=== PATIENT | female | born 1995 | race Caucasian/White ===

== ENCOUNTER → 2019-06-03 08:45 | Outpatient (CLI) | payer BC, SELFPAY ==
[2019-06-03 08:12] VITALS: BMI 35.6
[2019-06-03 10:50] LABS: HIV - WCH Non-Reactive (Nonreactive)
[2019-06-03 18:16] LABS: Chlamydia Trachomatis by PCR Negative (Negative); Neisserai gonorrhoeae by PCR Negative (Negative); Probe Check PASS; Sample Adequacy Control PASS; Specimen Processing Control PASS
[2019-06-05 03:06] LABS: HCV Quant. RNA PCR HCV Not Detected IU/mL (.)
[2019-06-05 11:36] LABS: HSV 1 IgG < 0.91 index (0.00-0.90); HSV 2 IgG < 0.91 index (0.00-0.90)
[2019-06-06 01:05] LABS: Rapid Plasmin Reagin (RPR) NONREACTIVE (NONREACTIVE)
[2019-06-06 16:02] LABS: HPV Reflexed? NOT INDICATED
== END ==
PROVIDERS: Referring Provider Nurse Practitioner Women's Health; Visit Provider Nurse Practitioner Women's Health
DX: Z12.4 Encounter for screening for malignant neoplasm of cervix (principal); Z11.3 Encounter for screening for infections with a predominantly sexual mode of transmission
CPT/HCPCS: 36415; 86592; 86695; 86696; 86703; 87491; 87522; 87591; 88175; G0145

== ENCOUNTER 2019-09-17 10:41 | Emergency (ER) | payer BC, SELFPAY ==
[2019-06-10 13:22] VITALS: BMI 34.7
[2019-09-17 10:41] VITALS: BP 139/87; PULSE 81; RESP 19; TEMP 36.8; O2SAT 97; BMI 34.0
[2019-09-17 10:54] VITALS: BP 139/82; PULSE 81; RESP 20; TEMP 36.8
--- NOTE | 2019-09-17 10:56 | ED.VISSUMM ---
- ER Visit Summary Date of Service: 09/17/19 Chief Complaint: [Cough and shortness of breath] History of Present Illness: The patient is a 24 F [presents to the emergency department with complaint of a cough since August 24. Patient was seen at urgent care on 27 August and was given an inhaler and told to self quarantine for 14 days for symptoms suspicious of COVID-19. Patient denies any exposures to COVID-19. She has had no fever. Cough mostly nonproductive. Patient states that she continues to cough and cough so hard that she actually vomits once or twice a day. Patient complains of exertional dyspnea. She otherwise has no medical history.] Physical Examination: [HEENT-PERRLA, EOMI. Cranial nerves II through XII grossly intact. TMs clear. Mucous membranes moist. No adenopathy. Cardiovascular-regular rate and rhythm without murmur or ectopy Lungs-clear to auscultation, chest wall stable without crepitus or subcu emphysema Abdomen-normoactive bowel sounds, soft, nontender, no rebound or rigidity, no peritoneal signs. Extremities-intact ?4, normal range of motion, normal pulses, atraumatic] Test Results: [CBC with differential obtained was normal. Chemistries unremarkable. D-dimer was normal 0.3. COVID test was ordered and is pending. Chest x-ray obtained showed patchy infiltrates right upper lobe and right lower lobe] Emergency Department Course and Treatment: [Patient was medicated with Levaquin 750 mg p.o.] Treatment Plan: [Patient will be discharged home with a prescription for Levaquin. Patient advised to continue to self quarantine] Disposition: [Discharged home in stable condition] Impression: [Pneumonia] This note was generated with [employer] software. It may contain incorrect words, spelling, and punctuation that were not noted in review of the chart prior to signing ED Disposition - Plan for ED Patient: Referrals: Care Physician,No Primary [Primary Care Provider] -
[2019-09-17 10:57] VITALS: O2SAT 97
--- NOTE | 2019-09-17 11:10 | RAD_ITS ---
STUDY: X-RAY CHEST REASON FOR EXAM: Female, 24 years old. Cough with sob TECHNIQUE: Single AP portable view of the chest. COMPARISON: None. FINDINGS: EKG electrodes are seen. Patchy infiltrates are seen in the right upper and right lower lobes. The left lung is clear. There is no demonstrated pleural abnormality. Normal size heart. Normal mediastinum and stefani. Normal visualized pulmonary arteries. Normal visualized aortic arch and descending thoracic aorta. Normal visualized thoracic spine. Normal visualized ribs, clavicles, and shoulders. There is no demonstrated abnormality of the visualized soft tissue structures of the upper abdomen. RAD/Chest 1 View (Portable) IMPRESSION: Patchy infiltrates in the right upper and right lower lobes. Follow-up is suggested. Electronically Signed: Yg Garcia, at 11:20 EDT , Service support ,
[2019-09-17 11:14] LABS: Absolute Lymphocyte Count 1.92 X10^3/uL (0.83-4.51); Absolute Neutrophil Count 4.1 X10^3/uL (2.0-7.7); Basophil# 0.04 X10^3/uL; Basophil% 0.5 % (0-1); Eosinophils% 22.3 % (0-5); Hematocrit 43.6 % (37-47); Hemoglobin 14.7 g/dL (12.0-15.0); Lymphocyte # 1.92 X10^3/ul (4.0); Lymphocyte % 22.5 % (19-41); Mean Corp Hgb Conc 33.7 g/dL (32-36); Mean Corpuscular Hgb 29.1 pg (27.0-32.0); Mean Corpuscular Volume 86.2 fL (81-99); Mean Platelet Vol. 11.2 fl (6.2-12.0); Monocyte# 0.53 X10^3/uL; Monocyte% 6.2 % (0-10); NRBC Flagged by Analyzer 0 % (0-5); Neutrophil # 4.12 X10^3/uL (2.7-7.7); Neutrophil % 48.4 % (47-70); Platelet Count 251 K/mm3 (150-450); RBC Distribution Width SD 37.9 fl (35.1-43.9); Red Blood Count 5.06 M/mm3 (4.2-5.4); White Blood Count 8.5 K/mm3 (4.4-11.0)
[2019-09-17 11:27] LABS: Anion Gap 9 (5-15); BUN 10 mg/dL (7-18); BUN/Creat Ratio 12.7 RATIO (10-20); Calcium,Total 9.6 mg/dL (8.5-10.1); Chloride 110 mmol/L (98-107); Creatinine, Serum 0.79 mg/dL (0.55-1.02); EST Glomerular Filtration Rate 94 mL/min (>60); Est Glom Filt Rate - Afr Amer 114 mL/min (>60); Estimated Creatinine Clearance 113.77 ml/min; Glucose 98 mg/dL (74-106); Potassium 3.6 mmol/L (3.5-5.1); Sodium Level 143 mmol/L (136-145)
--- NOTE | 2019-09-17 12:37 | DCINST.ED_ITS ---
ED Disposition - Plan for ED Patient: Instructions: Pneumonia Prescriptions: Levofloxacin [Levaquin] 750 mg PO DAILY #7 tab Transmission Status: [facility] to [id number] Benzonatate [Tessalon Perle] 200 mg PO TID PRN PRN #20 cap PRN Reason: Cough Transmission Status: Pending to [id number] Referrals: Care Physician,No Primary [Primary Care Provider] - 3-5 Days
--- NOTE | 2019-09-17 12:37 | ED.DEP ---
ED Disposition - Plan for ED Patient: Instructions: Pneumonia Prescriptions: Levofloxacin [Levaquin] 750 mg PO DAILY #7 tab Transmission Status: [facility] to [id number] Benzonatate [Tessalon Perle] 200 mg PO TID PRN PRN #20 cap PRN Reason: Cough Transmission Status: Pending to [id number] Referrals: Care Physician,No Primary [Primary Care Provider] - 3-5 Days
[2019-09-17 13:02] VITALS: BP 128/68; PULSE 80; RESP 22; O2SAT 98
[2019-09-17] MEDS: levoFLOXacin 750 MG Tablet PO (13:05)
== END 2019-09-17 13:16 | disposition home or self-care (01) ==
LOC: ED 12:15
PROVIDERS: Emergency Provider Emergency Medicine
DX: J18.9 Pneumonia, unspecified organism (principal)
CPT/HCPCS: 71045; 80048; 85025; 85379; 87635; 99284; G2023; U0003

== ENCOUNTER 2019-09-18 07:52 | Inpatient (IN) | payer BC, SELFPAY ==
[2019-09-17 10:41] VITALS: BMI 34.0
[2019-09-18] VITALS (12 sets, daily range): BP systolic 114–145; BP diastolic 57–91; PULSE 73–107; RESP 12–26; TEMP 36.4–37.2; O2SAT 91–99; BMI 34.0
--- NOTE | 2019-09-18 08:12 | RAD_ITS ---
STUDY: X-RAY CHEST REASON FOR EXAM: Female, 24 years old. PNEUMONIA X 1 MONTH, CHECK PROGRESSION, CONTINUED SOB AND COUGH TECHNIQUE: Single AP portable view of the chest. COMPARISON: Comparison is made with prior examination dated September 17, 2019. FINDINGS: EKG electrodes are seen. Stable appearance of the infiltrates in the right upper and right lower lobes with a lateral peripheral distribution. There is no demonstrated pleural abnormality. Normal size heart. Normal mediastinum and stefani. Normal visualized pulmonary arteries. Normal visualized aortic arch and descending thoracic aorta. Normal visualized thoracic spine. Normal visualized ribs, clavicles, and shoulders. There is no demonstrated abnormality of the visualized soft tissue structures of the upper abdomen. RAD/Chest 1 View (Portable) IMPRESSION: Stable appearance of the infiltrates in the lateral aspects of the right upper and right lower lobes. Electronically Signed: Yg Garcia, at 9:13 EDT , Service support ,
--- NOTE | 2019-09-18 08:15 | ED.VIS.DYS ---
History of Present Illness Chief Complaint: Shortness of Breath Informant: Patient Onset: Weeks - 3 Activity at onset: Rest Timing: Continuous Quality: - - trouble breathing Current Severity: Moderate Maximum Severity: Severe Worsened by: Coughing, Exertion Relieved by: Albuterol, Rest Associated Symptoms: Cough - mostly PERSONNEL TECHNICIAN, - - occ postussive emesis. Negative for: Fever Chest Pain: None Narrative: Patient seen here yesterday for 3 weeks of cough and shortness of breath, diagnosed with pneumonia throughout the right lung and had a negative COVID test. She was placed on Levaquin and given an albuterol inhaler and advised to follow-up. Mom states she brought her back because she was increased coughing and shortness of breath all night, she had an episode of bronchospasm and increased shortness of breath this morning during which her pulse ox that they measured at home dropped down to 83%, patient states she came back up into the 90s shortly thereafter. She is currently dyspneic and states she has been dyspneic like she is now for the last 3 weeks since the middle of August. She has been using her albuterol inhaler almost every hour overnight according to mother. She says it does help her breathing some when she uses it. She denies any new symptoms. Past Medical History - Allergies and Home Meds Allergies/Adverse Reactions: Allergies Penicillins Allergy (Mild, Verified 09/18/19 07:52) anaphylactic Primary Care Physician: Care Physician,No Primary [NON-STAFF] - Past Medical History: None Lives: With Family Smoking Status: Former smoker Review of Systems General: Reports: Malaise, Sweats - when having episodes of brochospasm. Denies: Chills, Fever Eyes: Denies: Visual changes - bilaterally, Diplopia ENT: Denies: Bilateral ear pain, Rhinorrhea, Sore throat Cardiovascular: Denies: Chest pain, Palpitations Respiratory: Reports: Dyspnea, Cough, Dyspnea on exertion. Denies: Sputum, Orthopnea Gastrointestinal: Reports: Vomiting - only postussive. Denies: Abdominal pain, Nausea, Diarrhea, Melena, Hematochezia Genitourinary: Denies: Dysuria, Hematuria, Frequency Musculoskeletal: Denies: Neck pain, Back pain, Swelling, Extremity Pain Skin: Denies: Rash, Wounds Neurological: Denies: Headache, Weakness, Numbness Physical Exam Vital Signs/Narrative: Vital Signs Temp Pulse Resp BP Pulse Ox 09/18/19 07:53 97.5 F L 99 24 H 114/57 L 91 Inital Vital Signs reviewed: Yes General: Well nourished, Well developed, Acute Distress - mild resp distress. speaking in 10+ word sentences Head: Normocephalic, Atraumatic Eyes: Perrl, EOMI ENT: Moist mucous membranes, No rhinorrhea, - - POP clear Neck: Supple, Nontender, No lymphadenopathy, No JVD Cardiovascular: Regular rate, Regular rhythm, No murmurs Respiratory: Chest nontender, Rales - right. Negative for: Rhonchi, Wheezing Abdomen: Soft, Nontender, Nondistended, Normal bowel sounds Back: Nontender, Normal Inspection Extremities: Nontender, No edema. Negative for: Calf Tenderness Skin: Normal color, No rash, No Trauma Neurological: Alert, Oriented x3, Cranial nerves II-XII grossly intact, Normal Strength, Normal Sensation, Normal Gait Psychological: Normal affect, Normal Mood Diagnostic/Tx/Re-eval Impressions Chest X-Ray 09/18/19 08:12 IMPRESSION: Stable appearance of the infiltrates in the lateral aspects of the right upper and right lower lobes. Electronically Signed: Yg Jose, at 9:13 EDT , Service support , 09/18/19 08:12 Chest 1 View (Portable) [RAD] Stat Laboratory Results 09/18/19 09/18/19 09/18/19 08:25 08:25 08:25 WBC 7.9 RBC 5.10 Hgb 14.8 Hct 44.3 MCV 86.9 MCH 29.0 MCHC 33.4 RDW Std Deviation 38.9 RDW Coeff of Amy 12.2 Plt Count 237 MPV 11.0 Immature Gran % (Auto) 0.300 Neut % (Auto) 36.8 L Lymph % (Auto) 30.8 [place] % (Auto) 6.5 Eos % (Auto) 25.2 H Baso % (Auto) 0.4 Absolute Neuts (auto) 2.9 Absolute Lymphs (auto) 2.42 Nucleated RBC % 0 Sodium 141 Potassium 3.6 Chloride 106 Carbon Dioxide 23.0 Anion Gap 12 BUN 8 Creatinine 0.83 Estim Creat Clear Calc 108.28 Est GFR (MDRD) Af Amer 107 Est GFR (MDRD) Non-Af 88 BUN/Creatinine Ratio 9.6 L Glucose 91 Lactic Acid 1.2 Calcium 9.5 Treatment - Dyspnea: Albuterol, Atrovent Repeat Evaluation: Improved - but anxious, shaky - Medical Decision Making Labs including lactic acid are normal, as they were yesterday (except lactate not drawn). CXR is unchanged. She is improved after aerosols. However after being observed for a while in the ER, she became nauseated, was given Zofran, then she slept for a little while, she remained on the monitor but the department was busy. And rechecking her, mother noticed that the monitor showed hypoxia and was alarming at one point while she was sleeping, which is not the case when I was reevaluating her. We rechecked the alarms on telemetry, and indeed her pulse ox did go down to 85% with good waveform while she was sleeping. She now is awake, tachypneic at 24-26, still not feeling well, I think admission is warranted. ED Disposition - Plan for ED Patient: Disposition: [facility] Diagnosis: Pneumonia, Hypoxemia Referrals: Care Physician,No Primary [NON-STAFF] -
[2019-09-18 08:41] LABS: Absolute Lymphocyte Count 2.42 X10^3/uL (0.83-4.51); Absolute Neutrophil Count 2.9 X10^3/uL (2.0-7.7); Basophil# 0.03 X10^3/uL; Basophil% 0.4 % (0-1); Eosinophil# 1.98 X10^3/uL; Eosinophils% 25.2 % (0-5); Hematocrit 44.3 % (37-47); Hemoglobin 14.8 g/dL (12.0-15.0); Lymphocyte # 2.42 X10^3/ul (4.0); Lymphocyte % 30.8 % (19-41); Mean Corp Hgb Conc 33.4 g/dL (32-36); Mean Corpuscular Volume 86.9 fL (81-99); Monocyte# 0.51 X10^3/uL; Monocyte% 6.5 % (0-10); NRBC Flagged by Analyzer 0 % (0-5); Neutrophil % 36.8 % (47-70); Platelet Count 237 K/mm3 (150-450); RBC Distribution Width CV 12.2 % (11.6-14.6); RBC Distribution Width SD 38.9 fl (35.1-43.9); White Blood Count 7.9 K/mm3 (4.4-11.0)
[2019-09-18] MEDS: Ipratropium/Albuterol Sulfate 3 ML AMPUL.NEB INHALATION (08:59)
[2019-09-18] MEDS: Albuterol 2.5 MG/3 ML VIAL.NEB. INHALATION ×3 (08:59→22:03)
[2019-09-18 09:09] LABS: Anion Gap 12 (5-15); BUN 8 mg/dL (7-18); BUN/Creat Ratio 9.6 RATIO (10-20); Calcium,Total 9.5 mg/dL (8.5-10.1); Chloride 106 mmol/L (98-107); Creatinine, Serum 0.83 mg/dL (0.55-1.02); EST Glomerular Filtration Rate 88 mL/min (>60); Est Glom Filt Rate - Afr Amer 107 mL/min (>60); Estimated Creatinine Clearance 108.28 ml/min; Glucose 91 mg/dL (74-106); Potassium 3.6 mmol/L (3.5-5.1); Sodium Level 141 mmol/L (136-145)
[2019-09-18 09:15] LABS: Lactic Acid 1.2 mmol/L (0.4-1.9)
[2019-09-18] MEDS: Ondansetron 4 MG/2 ML Vial IV ×2 (09:53→17:09)
--- NOTE | 2019-09-18 12:01 | ED.RN ---
MOTHER STATES THAT PATIENT BECAME HYPOXIC WHILE SLEEPING, THIS RN REVIEWED MONITOR ALARMS AND FOUND PATIENT TO BE 85% ON ROOM AIR WITH A GOOD PLETH. DR. COX MADE AWARE, HOSPITALIST PAGED.
[2019-09-18] MEDS: levoFLOXacin IV 750 MG/150 ML BAG 100 MG IV (13:03)
--- NOTE | 2019-09-18 13:20 | NURSING ---
310 DELMA PNEUMONIA, HYPOXEMIA
--- NOTE | 2019-09-18 13:37 | HP.PCM_ITS ---
Problem List (1) Pneumonia Status: Acute (2) Hypoxemia Status: Acute History of Present Illness Date of Admission: 09/18/19 Chief Complaint: cough. shortness of breath. The patient is a 24 year old F presents with 3 weeks of shortness of breath. States she was seen at urgent care center 3 weeks ago and had a virtual visit with the physician who told her that she had symptoms of COVID-19 and did not prescribe any medication and sent her home. Patient has been having increasing cough and low-grade temperatures of around 99 ?F. Patient has been having vomiting with proximal-isms of cough. Presented to the emergency room yesterday was diagnosed with pneumonia and sent home with levofloxacin. Despite that, is not feeling better. Patient's mother, whom the patient lives with, checked her pulse ox in the morning and it was down into the 80% range. Brought to the emergency room and had a chest x-ray again confirmed pneumonia. Patient was observed and her pulse ox did drop down to 70% when she was on the pulse oximeter. Decision was made to admit the patient and continue with further treatment. Patient states that she does not have any history of asthma but stated that she lived in a house with black mold and had respiratory issues at that time. Stated that it F up my lungs. Never saw a aed trainer previously.[] Past Medical History Allergies Penicillins Allergy (Mild, Verified 09/18/19 07:52) anaphylactic Home Medications: Ambulatory Orders Medication Instructions Recorded levonorgestrel 20.1 mcg/24 hrs (6 1 device INTRAUTERINE ONCE 06/10/19 yrs) 52 mg intrauterine device Albuterol Inhaler [Ventolin Hfa 1 - 2 puff INHALATION Q4H PRN PRN 09/17/19 (SP)] Benzonatate [Tessalon Perle] 100 mg PO TID PRN PRN 09/17/19 Benzonatate [Tessalon Perle] 200 mg PO TID PRN PRN #20 cap 09/17/19 Guaifenesin/Pseudoephedrne HCl 1 ea PO BID PRN 09/17/19 [Mucinex D ER 600-60 mg Tablet] Levofloxacin [Levaquin] 750 mg PO DAILY #7 tab 09/17/19 Surgical History: Surgical History (Last Reviewed 06/10/19 @ 13:23 by Cintia Reddy) [place] teeth extracted K08.409 Lives: With Family Smoking Status: Former smoker - *Family History Paternal Family History: Family History (Last Reviewed 06/10/19 @ 13:23 by Cintia Reddy) Mother Hypertension History Items: Asthma Review of Systems Constitutional: Denies: Anorexia, Chills, Fever, Night Sweats Eyes: Denies: Blurred vision, Double vision HEENT: Denies: Head Aches, Sinus Congestion, Sinus Drainage Cardiovascular: Reports: Chest Pain. Denies: Palpitations Respiratory: Reports: Cough, Shortness of Breath Gastrointestinal: Reports: Vomiting. Denies: Abdominal Pain, Nausea Genitourinary: Denies: Dysuria Musculoskeletal: Denies: Joint Pain, Joint Tenderness Skin: Denies: Rash, Wounds Neurological: Denies: Numbness, Tingling, Focal weakness Psychiatric: Denies: Anxiety, Depression Hematologic/ Lymphatic: Denies: Easy Bruising, Easy Bleeding, Hx of blood clot Comment: All review of systems were negative except as mentioned above in the history of present illness and the other review of systems. VTE Information - Inpt Only VTE Present on Admission: No VTE Mechan Device Prophylaxis: None VTE Pharm Prophylaxis ordered?: Yes Patient Problems: Active and Suspected Problems (Last Reviewed 06/10/19 @ 13:23 by Cintia Reddy) Pneumonia (Acute) Hypoxemia (Acute) - Physical Exam Vitals/I&O's: Vital Signs Temp Pulse Resp BP Pulse Ox 37.2 C 82 12 142/61 H 94 09/18/19 13:06 09/18/19 13:06 09/18/19 13:06 09/18/19 13:06 09/18/19 13:06 Oxygen Delivery Method Room Air Weight: 104.326 kg Body Mass Index (BMI) 34.0 Intake and Output for Last 24 Hours 09/16/19 09/17/19 09/18/19 23:59 23:59 23:59 Intake Total 500 / 500 Balance 500 / 500 General: Alert, Cooperative, No apparent distress HEENT: Atraumatic, Normocephalic Oral: Moist Mucosa, No Gingival or Mucosal Lesions/ Ulcerations Neck: No Nodes, Thyroid Normal Size and Texture Lungs: Clear to auscultation, Diminished Cardiovascular: Regular rate, Regular Rhythm, Normal S1, No murmurs Abdomen: Bowel Sounds Present, Soft, Non Tender, Non-Distended, No Hepato- splenomegaly Extremities: No edema, No Calf Tenderness Skin: No rashes, No breakdown Musculoskeletal: No Tenderness to Palpation of Joints or Extremities, No Muscle Wasting Neurological: - - no clonus. Psych/Mental Status: Normal Affect, Appropriate Laboratory Results 09/18/19 08:25: WBC 7.9, RBC 5.10, Hgb 14.8, Hct 44.3, MCV 86.9, MCH 29.0, MCHC 33.4, RDW Std Deviation 38.9, RDW Coeff of Amy 12.2, Plt Count 237, MPV 11.0, Immature Gran % (Auto) 0.300, Neut % (Auto) 36.8 L, Lymph % (Auto) 30.8, [place] % (Auto) 6.5, Eos % (Auto) 25.2 H, Baso % (Auto) 0.4, Absolute Neuts (auto) 2.9, Absolute Lymphs (auto) 2.42, Nucleated RBC % 0 09/18/19 08:25: Sodium 141, Potassium 3.6, Chloride 106, Carbon Dioxide 23.0, Anion Gap 12, BUN 8, Creatinine 0.83, Estim Creat Clear Calc 108.28, Est GFR (MDRD) Af Amer 107, Est GFR (MDRD) Non-Af 88, BUN/Creatinine Ratio 9.6 L, Glucose 91, Calcium 9.5 09/18/19 08:25: Lactic Acid 1.2 Current Medications Sodium Chloride () 500 mls @ 999 mls/hr IV .Q31M ONE Last Infusion: 09/18/19 09:11 Dose: Infused Documented by: Assessment/Plan All Active Problems (Last Reviewed 06/10/19 @ 13:23 by Cintia Reddy) Pneumonia (Acute) Hypoxemia (Acute) 1. Pneumonia * atypical * continue with levofloxacin * check strep and legionella antigens * pulm toilet * concern for underlying asthma, recommend outpt follow up with pulmonology. * may be a component of bronchitis, so will add prednisone and BDs 2. hypoxia * supportive mgmt * treat above 3. VTE prophylaxis: LMWH. DW patient's mother at bedside. Inpatient E&M: [id number] Init Hosp L3
[2019-09-18] MEDS: predniSONE 20 MG Tablet 40 MG PO (15:26)
[2019-09-18] MEDS: Acetaminophen 325 MG Tablet 650 MG PO ×2 (15:26→21:32)
[2019-09-18] MEDS: guaiFENesin/Codeine 5 ML UDC 10 ML PO ×2 (15:26→21:32)
[2019-09-18] MEDS: 0.9% Saline Lock 10 ML Syringe IV (17:09)
[2019-09-18] MEDS: guaiFENesin 600 MG Tablet PO (21:32)
[2019-09-19 03:27] VITALS: BP 128/92; PULSE 64; RESP 18; TEMP 36.3; O2SAT 97
[2019-09-19] MEDS: guaiFENesin/Codeine 5 ML UDC 10 ML PO ×2 (03:37→10:17)
[2019-09-19 04:00] VITALS: PULSE 73; RESP 20
[2019-09-19] MEDS: Albuterol 2.5 MG/3 ML VIAL.NEB. INHALATION ×2 (04:00→16:04)
[2019-09-19 06:27] LABS: Absolute Lymphocyte Count 1.43 X10^3/uL (0.83-4.51); Absolute Neutrophil Count 5.9 X10^3/uL (2.0-7.7); Basophil# 0.01 X10^3/uL; Basophil% 0.1 % (0-1); Eosinophil# 0.07 X10^3/uL; Eosinophils% 0.9 % (0-5); Hematocrit 42.8 % (37-47); Hemoglobin 14.2 g/dL (12.0-15.0); Lymphocyte # 1.43 X10^3/ul (4.0); Lymphocyte % 17.7 % (19-41); Mean Corp Hgb Conc 33.2 g/dL (32-36); Mean Corpuscular Hgb 29.2 pg (27.0-32.0); Mean Corpuscular Volume 87.9 fL (81-99); Mean Platelet Vol. 11.2 fl (6.2-12.0); Monocyte% 7.4 % (0-10); NRBC Flagged by Analyzer 0 % (0-5); Neutrophil # 5.93 X10^3/uL (2.7-7.7); Neutrophil % 73.5 % (47-70); Platelet Count 248 K/mm3 (150-450); RBC Distribution Width CV 12.2 % (11.6-14.6); RBC Distribution Width SD 39.3 fl (35.1-43.9); Red Blood Count 4.87 M/mm3 (4.2-5.4); White Blood Count 8.1 K/mm3 (4.4-11.0)
[2019-09-19 06:52] LABS: Anion Gap 9 (5-15); BUN 9 mg/dL (7-18); BUN/Creat Ratio 12.8 RATIO (10-20); Calcium,Total 9.3 mg/dL (8.5-10.1); Chloride 105 mmol/L (98-107); EST Glomerular Filtration Rate 108 mL/min (>60); Est Glom Filt Rate - Afr Amer 130 mL/min (>60); Estimated Creatinine Clearance 128.39 ml/min; Glucose 102 mg/dL (74-106); Potassium 3.9 mmol/L (3.5-5.1); Sodium Level 137 mmol/L (136-145)
[2019-09-19 10:09] VITALS: BP 133/73; PULSE 85; RESP 16; TEMP 37.2; O2SAT 100
[2019-09-19] MEDS: levoFLOXacin IV 750 MG/150 ML BAG 100 MG IV (10:11)
[2019-09-19] MEDS: guaiFENesin 600 MG Tablet PO (10:14)
[2019-09-19] MEDS: predniSONE 20 MG Tablet 40 MG PO (10:14)
--- NOTE | 2019-09-19 10:24 | CASEMGMT ---
RN CM Assessment Note Intro role of CM to patient. Pt is having coughing fits, shortness of breath with conversation. Assessment kept brief for patient's comfort. Presentation: 3 week history of shortness of breath. Diagnosis: Pneumonia, Levofloxacin. Possible underlying asthma PCP: YARY Davis Specialists: none Insurance: Danie Preferred Pharmacy: [facility] Prescription Benefit: yes LNOK: Mother, Alcides Wynne Living Arrangements: Lives independently, works. No care needs identified. Tranportation: drives DME: none. States no oxygen, no nebulizer prior Patient DC Goals: Home DC Plan: Anticipate Home on discharge with po antibiotics. Pt is currently 97% on RA, not using oxygen, but is using inhalers. . CM available for discharge planning coordination. Contact CM for any concerns/needs that may arise. Nica DORSEY RN ACM
--- NOTE | 2019-09-19 11:54 | PCM.DC ---
- Discharge Diagnoses Current Active Problems: Current Active and Chronic Problems (Last Reviewed 06/10/19 @ 13:23 by Cintia Reddy) Pneumonia (Acute) Hypoxemia (Acute) You will use the following diet at home:: No restrictions Discharge Activity: Return to Normal Activity - slowly ease back into routine. Call your doctor if you observe: Fever of 101 or Higher, Shortness of breath Allergies/Adverse Reactions: Allergies Penicillins Allergy (Mild, Verified 09/18/19 07:52) anaphylactic Medications to take at Discharge levonorgestrel 20.1 mcg/24 hrs (6 yrs) 52 mg intrauterine device 1 device INTRAUTERINE ONCE 06/10/19 Albuterol Inhaler [Ventolin Hfa] 1 - 2 puff INHALATION Q4H PRN PRN 09/17/19 Levofloxacin [Levaquin] 750 mg PO DAILY #7 tab 09/17/19 Acetaminophen [Tylenol Tablet] 650 mg PO Q6H PRN PRN tab 09/19/19 Guaifenesin [Mucinex] 600 mg PO BID #10 tab 09/19/19 Guaifenesin/Codeine [Robitussin AC] 10 ml PO Q6H PRN PRN #250 ml 09/19/19 Ondansetron [Zofran] 8 mg PO Q8H PRN PRN #15 tab 09/19/19 predniSONE tablet 2 tab PO DAILY@0800 #6 tab 09/19/19 The following prescriptions were given: Guaifenesin [Mucinex] 600 mg PO BID #10 tab Transmission Status: [id number] predniSONE tablet 2 tab PO DAILY@0800 #6 tab Transmission Status: [id number] Guaifenesin/Codeine [Robitussin AC] 10 ml PO Q6H PRN PRN #250 ml PRN Reason: coughing fit Transmission Status: Received by [id number] Ondansetron [Zofran] 8 mg PO Q8H PRN PRN #15 tab PRN Reason: nausea and vomiting Transmission Status: [id number] Primary Care Physician: Care Physician,No Primary [NON-STAFF] - Test Results: Test results from this visit will be discussed in further detail at your follow-up appointment, if applicable. Please Follow Up With: Haagen,Any, AUTOM[employer]BI[employer] SEAT COVER INSTALLER-C When: 1-2 weeks Please Follow Up With: Kee Carey MD - Pulmonology When: 1-2 months Proposed Discharge Date: 09/19/19
--- NOTE | 2019-09-19 11:56 | PCM.DC.SUM ---
Discharge Date and Diagnosis - Problem List Patient Problems: Active and Suspected Problems (Last Reviewed 06/10/19 @ 13:23 by Cintia Reddy) Pneumonia (Acute) Hypoxemia (Acute) Date of Admission: 09/18/19 Date of Discharge: 09/19/19 - Primary Discharge Diagnosis Acute Problems: Active Problems (Last Reviewed 06/10/19 @ 13:23 by Cintia Reddy) Pneumonia (Acute) Hypoxemia (Acute) Hospital Course and Treatment Imaging Results: Clinical Impression(s) from Imaging Studies Chest X-Ray 09/18/19 08:12 IMPRESSION: Stable appearance of the infiltrates in the lateral aspects of the right upper and right lower lobes. Electronically Signed: Yg Croftsofia, at 9:13 EDT , Service support , Operations: None Procedures: None Summary of Care Provided: The patient is a 24 year old F presents with 3 weeks of shortness of breath. Patient had previously been evaluated remotely in urgent care center and was clinically diagnosed with COVID-19 though did not have any testing at that time. Was just having coughing low-grade temperatures and with coughing fits. Presented to the emergency room the ninth and was diagnosed with pneumonia and received levofloxacin. Did not feel better and had her oxygen checked at home and while she was sleeping, dropped into the 80% range. While in the emergency room, it was observed that she dropped that is 70% range. Decision was made to admit the patient for pneumonia. Patient continued to receive levofloxacin. Patient's oxygen was checked after she had just awoken was 96% on room air. Patient was complaining of coughing fits and vomiting but did not have any vomiting while she was here though still was having proximal-isms of cough. Had a long discussion with the patient that she may have some underlying lung disease, such as asthma and did recommend that she follow-up with a communication [facility] [employer] as patient stated that she had some respiratory issues when she lived in a house with suppose it black mold.[] Patient Problems: Active and Suspected Problems (Last Reviewed 06/10/19 @ 13:23 by Cintia Reddy) Pneumonia (Acute) Hypoxemia (Acute) - Physical Exam Vitals/I&O's: Vital Signs Temp Pulse Resp BP Pulse Ox 37.2 C 85 16 133/73 H 100 09/19/19 10:09 09/19/19 10:09 09/19/19 10:09 09/19/19 10:09/19/19 10:09 Oxygen Delivery Method Room Air Weight: 104.326 kg Body Mass Index (BMI) 34.0 Intake and Output for Last 24 Hours 09/17/19 09/18/19 09/19/19 23:59 23:59 23:59 Intake Total 1450 / 1450 740 / 740 Output Total 300 / 300 Balance 1450 / 1450 440 / 440 General: Alert, No apparent distress HEENT: Atraumatic, Normocephalic Oral: Moist Mucosa, No Gingival or Mucosal Lesions/ Ulcerations Lungs: Normal air movement, Wheezes - faint Cardiovascular: Regular rate, Regular Rhythm, Normal S1, Normal S2, No murmurs Abdomen: Bowel Sounds Present, Soft, Non Tender, Non-Distended, No Hepato-splenomegaly Extremities: No edema, No Calf Tenderness Skin: No rashes, No breakdown Psych/Mental Status: Normal Affect, Appropriate Microbiology Past 72 Hours 09/18/19 16:05 Urine, Clean Catch Legionella Antigen - Final 09/18/19 16:05 Urine, Clean Catch Streptococcus pneumoniae Antigen (M - Final Laboratory Results 09/19/19 06:05: WBC 8.1, RBC 4.87, Hgb 14.2, Hct 42.8, MCV 87.9, MCH 29.2, MCHC 33.2, RDW Std Deviation 39.3, RDW Coeff of Amy 12.2, Plt Count 248, MPV 11.2, Immature Gran % (Auto) 0.400, Neut % (Auto) 73.5 H, Lymph % (Auto) 17.7 L, [place] % (Auto) 7.4, Eos % (Auto) 0.9, Baso % (Auto) 0.1, Absolute Neuts (auto) 5.9, Absolute Lymphs (auto) 1.43, Nucleated RBC % 0 09/19/19 06:05: Sodium 137, Potassium 3.9, Chloride 105, Carbon Dioxide 23.0, Anion Gap 9, BUN 9, Creatinine 0.70, Estim Creat Clear Calc 128.39, Est GFR (MDRD) Af Amer 130, Est GFR (MDRD) Non-Af 108, BUN/Creatinine Ratio 12.8, Glucose 102, Calcium 9.3 Current Medications Acetaminophen (Tylenol) 650 mg PO Q6H PRN PRN PRN Reason: Pain Score 1-10/Temp > 100.7 F Last Admin: 09/18/19 21:32 Dose: 650 mg Documented by: Albuterol Sulfate (Ventolin Aerosols) 2.5 mg INHALATION Q2H PRN PRN PRN Reason: Shortness of Breath/Wheezing Last Admin: 09/19/19 04:00 Dose: 2.5 mg Documented by: Dextrose (D50w Syringe) 0 gm IV X1 PRN; Protocol PRN Reason: Hypoglycemia Glucagon () 1 mg IM .X1 PRN PRN Reason: Hypoglycemia Guaifenesin (Mucinex) 600 mg PO BID [facility] Last Admin: 09/19/19 10:14 Dose: 600 mg Documented by: Guaifenesin/Codeine Phosphate (Robitussin Ac) 10 ml PO Q6H PRN PRN PRN Reason: coughing fit Last Admin: 09/19/19 10:17 Dose: 5 ml Documented by: Sodium Chloride () 500 mls @ 999 mls/hr IV .Q31M ONE Last Infusion: 09/18/19 09:11 Dose: Infused Documented by: Levofloxacin (Levaquin Iv) 750 mg in 150 mls @ 100 mls/hr IV Q24 [facility] Last Admin: 09/19/19 10:11 Dose: 100 mls/hr Documented by: Ondansetron HCl (Zofran) 4 mg IV Q8H PRN PRN PRN Reason: NAUSEA/VOMITING Last Admin: 09/18/19 17:09 Dose: 4 mg Documented by: Prednisone () 40 mg PO DAILY@0800 [facility] Last Admin: 09/19/19 10:14 Dose: 40 mg Documented by: Sodium Chloride () 10 - 40 ml IV UD PRN PRN Reason: SALINE FLUSH Last Admin: 09/18/19 17:09 Dose: 10 ml Documented by: Discharge Diet: No Restrictions Discharge Activity: Return to Normal Activity - slowly ease back into routine. Call your doctor if you observe: Fever of 101 or Higher, Shortness of breath Home Medications: Medications to take at Discharge levonorgestrel 20.1 mcg/24 hrs (6 yrs) 52 mg intrauterine device 1 device INTRAUTERINE ONCE 06/10/19 Albuterol Inhaler [Ventolin Hfa] 1 - 2 puff INHALATION Q4H PRN PRN 09/17/19 Levofloxacin [Levaquin] 750 mg PO DAILY #7 tab 09/17/19 Acetaminophen [Tylenol Tablet] 650 mg PO Q6H PRN PRN tab 09/19/19 Guaifenesin [Mucinex] 600 mg PO BID #10 tab 09/19/19 Guaifenesin/Codeine [Robitussin AC] 10 ml PO Q6H PRN PRN #250 ml 09/19/19 Ondansetron [Zofran] 8 mg PO Q8H PRN PRN #15 tab 09/19/19 predniSONE tablet 2 tab PO DAILY@0800 #6 tab 09/19/19 Following Prescrptions Were Given to Patient: Guaifenesin [Mucinex] 600 mg PO BID #10 tab Transmission Status: Pending to [id number] predniSONE tablet 2 tab PO DAILY@0800 #6 tab Transmission Status: Pending to [id number] Guaifenesin/Codeine [Robitussin AC] 10 ml PO Q6H PRN PRN #250 ml PRN Reason: coughing fit Transmission Status: Received by [id number] Ondansetron [Zofran] 8 mg PO Q8H PRN PRN #15 tab PRN Reason: nausea and vomiting Transmission Status: Pending to [id number] Primary Care Physician: Care Physician,No Primary [NON-STAFF] - Please Follow Up With: Any Davis NP-C When: 1-2 weeks Please Follow Up With: Kee Carey MD - Pulmonology When: 1-2 months Disposition: Home Minutes spent on discharge:: 28 Patient Condition:: Good Medical Necessity - Tobacco Use Smoking Status: Light Smoker (<10/day) Meaningful Use Info Meaningful Use Diagnoses (Choose all that apply): None applicable Inpatient E&M: 37525 [facility]
[2019-09-19] MEDS: Ondansetron 4 MG/2 ML Vial IV (13:09)
[2019-09-19] MEDS: Acetaminophen 325 MG Tablet 650 MG PO (13:09)
[2019-09-19 16:04] VITALS: PULSE 78; RESP 20
== END 2019-09-19 16:27 | disposition home or self-care (01) | DRG 195 ==
LOC: ED 12:01 → MS3 14:01
PROVIDERS: Emergency Provider Emergency Medicine; PCP Registered Nurse
DX: J18.9 Pneumonia, unspecified organism (principal); R09.02 Hypoxemia; J98.01 Acute bronchospasm; R06.82 Tachypnea, not elsewhere classified; F17.200 Nicotine dependence, unspecified, uncomplicated; Z88.0 Allergy status to penicillin
CPT/HCPCS: 71045; 80048; 83605; 85025; 87449; 94640; 99285; 99406; J7030; J7050; A4216; J2405

== ENCOUNTER → 2020-01-13 07:11 | Outpatient (CLI) | payer BC, SELFPAY ==
[2019-09-18 14:56] VITALS: BMI 34.0
--- NOTE | 2020-01-14 10:39 | SPIR ---
Spirometry PFT Testing Spirometry PFT Testing: INTRODUCTION: The patient is a 24-year-old female that presents for spirometry testing secondary to a diagnosis of wheezing. Respiratory therapy reports good patient effort. Bronchodilators were used during testing. INTERPRETATION: Forced expiration spirometry demonstrates no evidence of a large airways obstructive ventilatory defect. There was a significant response to aerosolized bronchodilators noted, based upon change in FEV1. Spirograms are of good quality and plateau normally. The respiratory flow volume loop is normal. IMPRESSION: Normal spirometry with significant bronchodilator response.
== END ==
LOC: PSN 07:12
PROVIDERS: PCP Family Medicine; Referring Provider Family Medicine; Visit Provider Family Medicine
DX: R06.2 Wheezing (principal)
CPT/HCPCS: 94060